=== PATIENT | male | born 1975 | race Caucasian/White ===

== ENCOUNTER 2017-01-14 15:31 | Emergency (ER) | payer OTHER ==
[~2017-01-14] VITALS: Ht 170.2 cm; Wt 74.8 kg
[2017-01-14 16:31] VITALS: BP 142/93
[2017-01-14 16:41] LABS: BLOOD UREA NITROGEN 14 mg/dL (7-18)
== END 2017-01-14 17:07 | disposition home or self-care (01) ==
LOC: ED 17:00
DX: R42 Dizziness and giddiness (principal); I10 Essential (primary) hypertension
CPT/HCPCS: 36415; 71010; 80048; 82040; 83735; 85025; 93005; 99285